=== PATIENT | female | born 1970 | race Caucasian/White ===

== ENCOUNTER 2018-12-12 17:37 | Emergency (ER) | payer MEDICAID | END 2018-12-12 18:05 | disposition home or self-care (01) | LOC: E/R 17:37 | DX: G51.0 Bell's palsy (principal) | CPT/HCPCS: 99282; Z7502 ==

== ENCOUNTER 2019-01-02 08:56 | Inpatient (IN) | payer MEDICAID ==
[2019-01-02] MEDS: SOD CHLORIDE 0.9% 1,000 ML IV ×2 (09:57→17:39)
[2019-01-02] MEDS: ONDANSETRON 4 MG INJ IV (09:57)
[2019-01-02] MEDS: HYDROmorphONE 1 MG/ML SYG IV ×2 (09:57→15:11)
[2019-01-02] MEDS: CEFTRIAXONE 1 GM/50 ML (PMX) 50 ML IVPB (10:07)
[2019-01-02 10:09] LABS: ADD MAN DIFF? NO
[2019-01-02 10:11] LABS: WHITE BLOOD COUNT 12.4 10^3/ul (4.8-10.8)
[2019-01-02 10:11] LABS: BASOPHILS % 0.2 % (0.0-2.0); EOSINOPHILS # 0.1 10^3/ul (0.0-0.5); EOSINOPHILS % 1.1 % (0.0-7.0); HEMATOCRIT 38.2 % (37.0-47.0); HEMOGLOBIN 12.2 g/dl (12.0-16.0); LYMPHOCYTES # 0.9 10^3/ul (0.8-2.9); LYMPHOCYTES % 6.9 % (15.0-51.0); MEAN CORPUSCULAR HEMOGLOBIN 30.7 pg (29.0-33.0); MEAN CORPUSCULAR HGB CONC 31.9 g/dl (32.0-37.0); MEAN CORPUSCULAR VOLUME 96.2 fl (82.0-101.0); MEAN PLATELET VOLUME 11.4 fl (7.4-10.4); MONOCYTE # 0.6 10^3/ul (0.3-0.9); MONOCYTES % 4.6 % (0.0-11.0); NEUTROPHIL # 10.8 10^3/ul (1.6-7.5); NEUTROPHILS % 86.9 % (39.0-77.0); PLATELET COUNT 179 10^3/UL (140-415); RED BLOOD COUNT 3.97 10^6/ul (4.20-5.40)
[2019-01-02 10:28] LABS: ADD UMIC YES; ALANINE AMINOTRANSFERASE 20 IU/L (13-69); ALBUMIN 4.5 g/dl (3.3-4.9); ALBUMIN/GLOBULIN RATIO 1.28; ALKALINE PHOSPHATASE 81 IU/L (42-121); ANION GAP 10 (5-13); ASPARTATE AMINO TRANSFERASE 35 IU/L (15-46); BILIRUBIN,INDIRECT 0.9 mg/dl (0-1.1); BILIRUBIN,TOTAL 0.9 mg/dl (0.2-1.3); BLOOD UREA NITROGEN 12 mg/dl (7-20); CALCIUM 9.4 mg/dl (8.4-10.2); CARBON DIOXIDE 26 mmol/L (21-31); CHLORIDE 104 mmol/L (97-110); CREATININE 1.14 mg/dl (0.44-1.00); Estimated GFR 50 mL/min (>60); GLUCOSE 111 mg/dl (70-220); POTASSIUM 3.7 mmol/L (3.5-5.1); SODIUM 140 mmol/L (135-144); UR ASCORBIC ACID NEGATIVE (NEGATIVE); UR BACTERIA FEW /HPF (NONE SEEN); UR BILIRUBIN (Dip) NEGATIVE (NEGATIVE); UR BLOOD (Dip) 3+ mg/dL (NEGATIVE); UR CLARITY TURBID (CLEAR); UR COLOR YELLOW (YELLOW); UR GLUCOSE (Dip) NEGATIVE (NEGATIVE); UR KETONES (Dip) NEGATIVE (NEGATIVE); UR LEUKOCYTE ESTERASE (Dip) 3+ Leu/ul (NEGATIVE); UR NITRITE (Dip) NEGATIVE (NEGATIVE); UR RBC > 182 /HPF (0-5); UR SPECIFIC GRAVITY (Dip) 1.017 (1.003-1.030); UR TOTAL PROTEIN (Dip) 2+ mg/dl (NEGATIVE); UR UROBILINOGEN (Dip) NEGATIVE (NEGATIVE); UR WBC > 182 /HPF (0-5)
[2019-01-02] MEDS: ACETAMINOPHEN 500 MG TAB PO (11:00)
[2019-01-02] MEDS ORDERED: ACETAMINOPHEN 325 MG TAB PO (14:00)
[2019-01-02] MEDS ORDERED: ONDANSETRON 4 MG INJ IV ×2 (14:00→17:30)
[2019-01-02] MEDS ORDERED: NACL 0.9% 3 ML SYG IV (17:30)
[2019-01-02] MEDS ORDERED: morphine 2 MG INJ IV (17:30)
[2019-01-02] MEDS ORDERED: DOCUSATE SODIUM 100 MG CAP PO (17:30)
[2019-01-02] MEDS ORDERED: HYDROCODONE/APAP (5/325) TAB PO (17:30)
[2019-01-02] MEDS ORDERED: ZOLPIDEM 5 MG TAB PO (17:30)
[2019-01-02] MEDS: ACETAMINOPHEN 325 MG TAB PO (22:37)
[2019-01-03] MEDS: SOD CHLORIDE 0.9% 1,000 ML IV ×3 (03:44→23:26)
[2019-01-03 05:11] LABS: ADD MAN DIFF? NO
[2019-01-03 05:19] LABS: WHITE BLOOD COUNT 11.5 10^3/ul (4.8-10.8)
[2019-01-03 05:19] LABS: BASOPHILS % 0.2 % (0.0-2.0); EOSINOPHILS # 0.1 10^3/ul (0.0-0.5); EOSINOPHILS % 0.8 % (0.0-7.0); HEMATOCRIT 34.3 % (37.0-47.0); LYMPHOCYTES # 1.2 10^3/ul (0.8-2.9); LYMPHOCYTES % 10.3 % (15.0-51.0); MEAN CORPUSCULAR HEMOGLOBIN 31.2 pg (29.0-33.0); MEAN CORPUSCULAR HGB CONC 32.1 g/dl (32.0-37.0); MEAN CORPUSCULAR VOLUME 97.2 fl (82.0-101.0); MEAN PLATELET VOLUME 11.5 fl (7.4-10.4); MONOCYTE # 0.7 10^3/ul (0.3-0.9); MONOCYTES % 6.1 % (0.0-11.0); NEUTROPHIL # 9.5 10^3/ul (1.6-7.5); NEUTROPHILS % 82.2 % (39.0-77.0); PLATELET COUNT 163 10^3/UL (140-415); RED BLOOD COUNT 3.53 10^6/ul (4.20-5.40); RED CELL DISTRIBUTION WIDTH 14.4 % (11.5-14.5)
[2019-01-03 05:28] LABS: HEMOGLOBIN A1C 5.7 % (0-5.9)
[2019-01-03 05:39] LABS: ANION GAP 6 (5-13); BLOOD UREA NITROGEN 7 mg/dl (7-20); CALCIUM 8.8 mg/dl (8.4-10.2); CARBON DIOXIDE 28 mmol/L (21-31); CHLORIDE 108 mmol/L (97-110); CREATININE 1.08 mg/dl (0.44-1.00); Estimated GFR 54 mL/min (>60); GLUCOSE 106 mg/dl (70-220); PHOSPHORUS 3.9 mg/dl (2.5-4.9); POTASSIUM 3.5 mmol/L (3.5-5.1); SODIUM 142 mmol/L (135-144)
[2019-01-03] MEDS: CEFTRIAXONE 1 GM/50 ML (PMX) 50 ML IVPB (09:33)
[2019-01-03 10:40] LABS: ADD UMIC YES; UR ASCORBIC ACID NEGATIVE (NEGATIVE); UR BACTERIA FEW /HPF (NONE SEEN); UR BILIRUBIN (Dip) NEGATIVE (NEGATIVE); UR BLOOD (Dip) 3+ mg/dL (NEGATIVE); UR CLARITY TURBID (CLEAR); UR COLOR YELLOW (YELLOW); UR GLUCOSE (Dip) NEGATIVE (NEGATIVE); UR KETONES (Dip) NEGATIVE (NEGATIVE); UR LEUKOCYTE ESTERASE (Dip) 3+ Leu/ul (NEGATIVE); UR MUCUS FEW /HPF (NONE SEEN); UR NITRITE (Dip) NEGATIVE (NEGATIVE); UR NONSQUAMOUS EPITHELIAL CELL 2 /HPF (NONE SEEN); UR RBC > 182 /HPF (0-5); UR SPECIFIC GRAVITY (Dip) 1.017 (1.003-1.030); UR SQUAMOUS EPITHELIAL CELL FEW /HPF (FEW); UR TOTAL PROTEIN (Dip) 2+ mg/dl (NEGATIVE); UR UROBILINOGEN (Dip) NEGATIVE (NEGATIVE); UR WBC > 182 /HPF (0-5)
[2019-01-03] MEDS: ACETAMINOPHEN 325 MG TAB PO (19:35)
[2019-01-04 05:14] LABS: ADD MAN DIFF? NO
[2019-01-04 05:17] LABS: BASOPHILS % 0.3 % (0.0-2.0); EOSINOPHILS # 0.3 10^3/ul (0.0-0.5); EOSINOPHILS % 4.2 % (0.0-7.0); HEMATOCRIT 34.3 % (37.0-47.0); HEMOGLOBIN 11.3 g/dl (12.0-16.0); LYMPHOCYTES # 1.2 10^3/ul (0.8-2.9); LYMPHOCYTES % 15.4 % (15.0-51.0); MEAN CORPUSCULAR HEMOGLOBIN 31.6 pg (29.0-33.0); MEAN CORPUSCULAR HGB CONC 32.9 g/dl (32.0-37.0); MEAN CORPUSCULAR VOLUME 95.8 fl (82.0-101.0); MEAN PLATELET VOLUME 11.2 fl (7.4-10.4); MONOCYTE # 0.5 10^3/ul (0.3-0.9); MONOCYTES % 6.6 % (0.0-11.0); NEUTROPHIL # 5.7 10^3/ul (1.6-7.5); NEUTROPHILS % 73.1 % (39.0-77.0); PLATELET COUNT 178 10^3/UL (140-415); RED BLOOD COUNT 3.58 10^6/ul (4.20-5.40); RED CELL DISTRIBUTION WIDTH 14.2 % (11.5-14.5)
[2019-01-04 05:17] LABS: WHITE BLOOD COUNT 7.8 10^3/ul (4.8-10.8)
[2019-01-04 05:45] LABS: ANION GAP 8 (5-13); BLOOD UREA NITROGEN 9 mg/dl (7-20); CALCIUM 9.5 mg/dl (8.4-10.2); CARBON DIOXIDE 27 mmol/L (21-31); CHLORIDE 108 mmol/L (97-110); CREATININE 1.17 mg/dl (0.44-1.00); Estimated GFR 49 mL/min (>60); GLUCOSE 111 mg/dl (70-220); POTASSIUM 3.9 mmol/L (3.5-5.1); SODIUM 143 mmol/L (135-144)
[2019-01-04] MEDS: SOD CHLORIDE 0.9% 1,000 ML IV (09:26)
[2019-01-04] MEDS: CEFTRIAXONE 1 GM/50 ML (PMX) 50 ML IVPB (09:54)
== END 2019-01-04 16:28 | disposition home or self-care (01) | DRG 872 ==
LOC: E/R 08:56 → MS1 13:50
DX: A41.9 Sepsis, unspecified organism (principal); N17.9 Acute kidney failure, unspecified; N13.6 Pyonephrosis; K76.0 Fatty (change of) liver, not elsewhere classified; R31.9 Hematuria, unspecified
CPT/HCPCS: 36415; 74176; 76775; 80048; 80053; 81001; 83036; 83735; 84100; 84703; 85025; 87040-91; 87086; 96361; 96365; 96375; 99285-25